=== PATIENT | male | born 1985 | race Two or more races ===

== ENCOUNTER 2025-02-17 14:35 | Emergency (ER) | payer OTHER, SELFPAY ==
[2025-02-17 15:16] VITALS: BP 137/89; PULSE 74; RESP 16; TEMP 36.9; O2SAT 97; BMI 30.5
--- NOTE | 2025-02-17 15:26 | EDNOTE_ITS ---
ED Skin Abcess FB-RME/HPI General Chief complaint: Extremity Injury, Upper Stated complaint: PUNCTURE WOUND TO THUMB ON RIGHT HAND Time Seen by Provider: 02/17/25 14:51 Source: patient, RN notes reviewed and old records reviewed Arrival date/time: 02/17/25 14:35 Mode of arrival: ambulatory Limitations: no limitations RME / HPI RME / HPI narrative: 39yom presents to ED for puncture wound. Patient reports barbed wire stabbed his right thumb at work, requesting Tdap booster. 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 No joint pain/swelling or numbness/tingling reported. Related Data Allergies Allergy/AdvReac Type Severity Reaction Status Date / Time No Known Allergies Allergy Verified 02/17/25 14:38 Review of Systems Review of Systems Systems Reviewed: All systems reviewed, normal except as documented Integumentary/Breasts Comments: Reports puncture wound Past Medical History Social History SMOKING STATUS: Never smoker SUBSTANCE USE: does not use ALCOHOL: Current (Social) Past Medical History Comments PMH COMMENT: denies pmhx ED Exam General Limitations: Present no limitations General appearance: Present alert and in no apparent distress Head Head exam: Present atraumatic and normocephalic Eye Eye exam: Present normal appearance, PERRL and EOMI ENT ENT exam: Present normal exam and mucous membranes moist Neck Neck exam: Present normal inspection and full ROM Chest Chest inspection: Present normal inspection and symmetric chest wall rise Respiratory Respiratory exam: Present normal lung sounds bilaterally; Absent respiratory distress Cardiovascular Cardiovascular exam: Present regular rate and normal rhythm Extremities Exam Extremities exam: Present full ROM, normal capillary refill and other (Sensation intact); Absent tenderness Neurological Exam Neurological exam: Present alert and oriented X3 Psychiatric Psychiatric exam: Present normal affect and normal mood Skin Skin exam: Present other (Superficial puncture wound to right thumb pad. No active bleeding) Course Quality Measures none Orders Category Date Time Status TET,DIP/PERT AC (Adult)-Tdap [Boostrix Adult (Tdap) Med 02/17/25 15:26 Discontinued Vacc] 0.5 ml IMI .ONCE ONE Vital Signs Vital signs: Vital Signs Temperature 98.5 F 02/17/25 15:16 Pulse Rate 74 02/17/25 15:16 Respiratory Rate 16 02/17/25 15:16 Blood Pressure 137/89 H 02/17/25 15:16 Pulse Oximetry (%) 97 02/17/25 15:16 Oxygen Delivery Method Room Air 02/17/25 15:16 Skin / Abscess / Foreign Body MDM Narrative MDM Narrative:: 39yom presents to ED for puncture wound. Patient reports barbed wire stabbed his right thumb at work, requesting Tdap booster. 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 No joint pain/swelling or numbness/tingling reported. Tdap updated. Home wound care discussed. Stable for discharge, RTED precautions given. Patient data External records reviewed:: None (no prior visits) Clinical information provided by:: patient Social determinants that could affect healthcare access:: none Patient has the following chronic illnesses:: none How is presenting disease/condition affected by chronic disease/condition?: no chronic disease Evaluation data The following diagnostics were reviewed and interpreted by me:: other (specify) (none) Lab and/or radiology exams considered but not ordered:: Finger xrays: Puncture wound is superficial Interpretation Summary: na Medications / Prescriptions Medications or Prescriptions considered but not ordered:: No antibiotics recommended at this time Medication administrations:: Medication Administration History Discontinued Medications Diphtheria/Tetanus/Acell Pertussis (Diphth,Pertuss(Acell),Tet Vac 0.5 Ml Syr- Adult) 0.5 ml IMi .ONCE ONE Stop: 02/17/25 15:27 Last Admin: 02/17/25 15:41 Dose: 0.5 ml Documented By: KF Above medication administered in ED Consultations Consultation(s) initiated? (list below): No Diagnosis Skin/Abscess Differential Diagnosis: other (Laceration, abrasion, avulsion, puncture wound) Most likely diagnosis given after review of the tests above:: Puncture wound Admission Indicated Admission indicated?: not indicated Admission Request Was there a request for admission?: No Disposition Plan Disposition Plan: Discharge Discharge Attestation Discharge Attestation: The patient and all family members were given an opportunity to ask questions and understood the discharge instructions. Discharge instructions specifically effects, indications for sooner follow up or return to the emergency department, and the expected course of current diagnosis. Patient condition: Stable Discharge Plan Plan Patient Disposition: HOME (Self Care) Patient condition on transfer: Stable Problem List Clinical Impression: Need for tetanus booster, Puncture wound of right thumb Patient/Caregiver Discharge Instructions Education Materials: ED Puncture Wound (General) Print Language: [place] Stand Alone Forms: Josefina Award Info., Patient Portal Info Letter PA/BARREL RIB MATTING MACHINE OPERATOR Supervising Physician NOHEMY/BARREL RIB MATTING MACHINE OPERATOR Supervising Physician: Buffy
[2025-02-17] MEDS: DIPHTH,PERTUSS(ACELL),TET VAC 0.5 ML SYR- ADULT IMi (15:41)
== END 2025-02-17 15:40 | disposition home or self-care (01) ==
LOC: SERX 16:06
PROVIDERS: Emergency Provider Emergency Medicine
DX: S61.031A Puncture wound without foreign body of right thumb without damage to nail, initial encounter (principal); W26.8XXA Contact with other sharp object(s), not elsewhere classified, initial encounter; Z23 Encounter for immunization
CPT/HCPCS: 90471; 90715; 99282